=== PATIENT | female | born 1935 | race Caucasian/White ===

== ENCOUNTER 2016-08-02 07:44 | Emergency (ER) | payer MEDICARE, OTHER ==
[2016-08-02] MEDS ORDERED: IOPAMIDOL 370 (76%) 100 ML VIAL IV ONE ×2 (07:45)
[2016-08-02] MEDS ORDERED: LACTATED RINGERS 1,000 ML ONE (08:07)
[2016-08-02 08:11] LABS: ABSOLUTE NEUTROPHIL COUNT 7.5 K/mm3 (1.8-7.7); BASO # 0.1 K/mm3 (0.0-0.2); BASO % 0.5 % (0.2-1.0); EOS # 0.2 (0.0-0.5); HEMATOCRIT 40.5 % (37.0-47.0); HEMOGLOBIN 13.2 gm/l (12.0-16.0); IMM NEUT% 0.3 % (0-1); LYMPH # 1.1 (1.0-4.8); LYMPH % 11.8 % (15-45); MEAN CELL VOLUME 86.2 fl (81.0-99.0); MEAN CORPUSCULAR HEMOGLOBIN 28.1 pg (27.0-31.0); MEAN CORPUSCULAR HGB CONC 32.6 g/dl (33.0-37.0); MEAN PLATELET VOLUME 9.8 fl (7.4-10.4); MONO # 0.8 (0.0-0.8); MONO % 8.1 % (4-12); NEUT % 77.3 % (43-75); PLATELET COUNT 212 K/mm3 (130-400); RED CELL DISTRIBUTION WIDTH 12.7 % (11.5-14.5)
[2016-08-02 08:32] LABS: ALB/GLOB RATIO 1.1 (>1.0); ALBUMIN 3.8 gm/dL (3.5-5.7); CALCIUM 9.1 mg/dL (8.6-10.3)
[2016-08-02 08:39] LABS: PH,URINE 6.5 (5.0-8.0); URINE BILIRUBIN NEGATIVE (NEGATIVE); URINE BLOOD 2+ (NEGATIVE); URINE GLUCOSE (UA) NEGATIVE (NEGATIVE); URINE LEUKOCYTE ESTERASE 2+ (NEGATIVE); URINE NITRITE NEGATIVE (NEGATIVE); URINE PROTEIN TRACE (NEGATIVE)
[2016-08-02 08:42] LABS: URINE APPEARANCE HAZY; URINE COLOR YELLOW; URINE UROBILINOGEN 4 mg/dL (0-1 mg/dl)
[2016-08-02 08:45] LABS: URINE BACTERIA 1+; URINE EPITHELIAL CELLS 20-30 /hpf; URINE WBC 30-40 /hpf
[2016-08-02] MEDS ORDERED: ACETAMINOPHEN 500 MG TABLET ONE (12:15)
--- NOTE | 2016-08-02 22:02 | CT ---
Exam Type: ABD/PELVIS W/ CON Date and Time: 08/02/2016 8:01 AM Clinical information: Left lower quadrant abdominal pain. Comparison: 06/10/[address] Technique: Contiguous axial 4 mm images were obtained from the lung bases through the pelvis after the uneventful IV administration of 100 cc of [id number]. Sagittal and coronal reformations with high resolution lung algorithm images were also obtained at this time. CT DI: 17.3 DLP 937.3 FINDINGS: Lung base : Dependent and atelectatic changes are present at the lung bases. Visualized heart:There is no pericardial effusion. LIVER: There may be some minimal diffuse fatty infiltration without focal lesion. BILE DUCTS: normal caliber. GALLBLADDER: Surgically absent PANCREAS: Mild atrophy SPLEEN: Large wedge-shaped hypodense defect is present extending from the anterior superior spleen to the inferior posterior spleen. 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 Small amount of inflammatory changes noted along the inferior aspect of the spleen though no fluid is noted. ADRENALS: within normal limits. KIDNEYS: within normal limits. Stomach and small BOWEL: Normal caliber. Large bowel: Air and stool are noted within the large bowel. Diverticulosis without diverticulitis or abscess formation. Appendix is not visualized though secondary signs of appendicitis are not seen. LYMPH NODES: No enlarged mesenteric lymph nodes. PERITONEUM: no ascites or free air, no fluid collection. VESSELS: Mild to moderate atherosclerotic disease. RETROPERITONEUM: within normal limits. ABDOMINAL WALL: Atrophy of the right abdominal musculature from prior classic cholecystectomy. Bladder: Decompressed. Assessment of the pelvis is limited by streak artifact from the right total hip arthroplasty. BONES: Multilevel degenerative changes of the spine are noted. Spine maintains anatomic alignment. Hip arthroplasty as above. IMPRESSION: Findings of splenic infarct. No trauma history is provided at this time. No other specific cause for the patient's stated abdominal pain is identified. Other incidental findings as above. Findings were called to Dr. Shah on the morning of 08/02/2016.
--- NOTE | 2016-08-03 14:38 | CONS ---
JOSHUA HANNA : 1935 DATE OF CONSULTATION: August 02, 2016 REQUESTING PHYSICIAN: Rocky Shah M.D. HISTORY OF PRESENT ILLNESS: I had the pleasure of seeing Ms. Hanna in the emergency department at [facility]. She is an 81-year-old female who presented with an approximately 24 to 36 hours onset of acute left upper quadrant abdominal pain. She states that she never had the pain before. She is otherwise relatively healthy with no previous right-sided colon issues or issues with her spleen, stomach or distal pancreas. Ms. Hanna presented to the emergency department and underwent a survey CAT scan in an attempt to delineate the etiology of her left upper quadrant abdominal pain. I was asked to see Ms. Hanna to provide an opinion regarding the findings of the issue with the spleen. On axial imaging, the CAT scan reveals a slightly enlarged spleen with a hypodense triangular defect in the spleen consistent with an infarct. I reviewed this with the radiology department. They felt that the finding in the spleen was consistent with a vascular infarct. It did not appear to be a mass or a vascular malformation such as an aneurysm or pseudoaneurysm. There were no issues with clot in the splenic artery and the splenic vein appeared to be patent. PHYSICAL EXAM: At this point, I performed a physical exam on Ms. Hanna. Her abdomen is soft, nontender. She is in mild distress with her constant left upper quadrant pain, but this is manageable with a small amount of pain medication. Her abdomen is otherwise soft. I did not palpate her spleen, but on deep palpation she did have increased left upper quadrant pain. Her vitals were stable. LABS: Her laboratory results were within expected range. Her white count is 9.6. Her hemoglobin is 13.1. ASSESSMENT AND PLAN: I had a long discussion today with Ms. Hanna and her family member. I reviewed the radiological findings of what appears to be a splenic infarct. At this point there is no acute indication for surgical intervention. It does not appear to represent a mass or hemorrhage in the spleen which I think was initially the concern on imaging. With the splenic infarct, obviously the main concerns are hypercoagulable state and/or an embolic phenomenon such atrial fibrillation. I will leave the workup of the etiology of the splenic infarct in the capable hands of Dr. Shah. Again, at this point no acute surgical intervention is warranted.
== END 2016-08-02 12:32 | disposition home or self-care (01) ==
LOC: ED 07:44
DX: D73.5 Infarction of spleen (principal); I49.1 Atrial premature depolarization; E05.90 Thyrotoxicosis, unspecified without thyrotoxic crisis or storm; Z87.891 Personal history of nicotine dependence
CPT/HCPCS: 83605; 83690; 85025; 80053; 81001; 74177; 99284 ×2; 96360; 93005; A9270; J7120; Q9967 ×2